=== PATIENT | male | born 1985 | race African-American/Black ===

== ENCOUNTER 2016-05-15 17:25 | Emergency (ER) | payer OTHER ==
[~2016-05-15] VITALS: Ht 185.4 cm; Wt 91.6 kg
[~2016-05-15 17:25] MED LIST: AZIT250T6 PO; BENZ100C PO; IBUP-1060 PO; LIDO20SO PO; PROAIR RESPICL90 MCG IH
[2016-05-15 17:49] VITALS: BP 122/75
[2016-05-15] MEDS ORDERED: ONDANSETRON ODT 4 MG TAB.RAPDIS PO ONE (18:30)
[2016-05-15] MEDS ORDERED: LIDO:MAALOX:DONNATAL 1:1:1 15 ML SINGLE DOSE SWSW ONE (18:30)
[2016-05-15] MEDS ORDERED: RANI300T3 PO (18:33)
[2016-05-15] MEDS ORDERED: ONDA4TAB7 PO (18:33)
--- NOTE | 2016-05-15 18:33 | PHYS DOC ---
Past Medical History Past Medical History: No Pertinent History Past Surgical History: Other Additional Past Surgical Histo: foot, cyst removal rt testicle, L ACHILLES Alcohol Use: None Drug Use: None Adult General Chief Complaint Chief Complaint: ABDOMINAL PAIN HPI HPI 31-year-old male presents with 12 hour history of nausea. He states he does have some epigastric burning as well. He denies any shortness of breath. He denies fever chills sweats. He denies any melena or hematemesis. He states he's never had this Problem before. He Does Not Drink A Lot Of Alcohol. [] Review of Systems Review of Systems Constitutional: Denies fever or chills [] Eyes: Denies change in visual acuity, redness, or eye pain [] HENT: Denies nasal congestion or sore throat [] Respiratory: Denies cough or shortness of breath [] Cardiovascular: No additional information not addressed in HPI [] GI: Epigastric pain [] : Denies dysuria or hematuria [] Musculoskeletal: Denies back pain or joint pain [] Integument: Denies rash or skin lesions [] Neurologic: Denies headache, focal weakness or sensory changes [] Endocrine: Denies polyuria or polydipsia [] Current Medications Current Medications Current Medications Medications (Trade) Dose Ordered Sig/Ortega Start Time Stop Time Status Last Admin Dose Admin Multi-Ingredient Mouthwash/Gargle (Gi Cocktail Single Dose) 30 ml 1X ONCE 05/15/16 18:30 05/15/16 18:31 Ondansetron HCl (Zofran Odt) 4 mg 1X ONCE 05/15/16 18:30 05/15/16 18:31 Allergies Allergies Allergies Coded Allergies Type Severity Reaction Last Updated Verified No Known Drug Allergies 03/05/16 No Physical Exam Physical Exam Constitutional: Well developed, well nourished, no acute distress, non-toxic appearance. [] HENT: Normocephalic, atraumatic, bilateral external ears normal, oropharynx moist, no oral exudates, nose normal. [] Eyes: PERRLA, EOMI, conjunctiva normal, no discharge. [] Neck: Normal range of motion, no tenderness, supple, no stridor. [] Cardiovascular:Heart rate regular rhythm, no murmur [] Lungs & Thorax: Bilateral breath sounds clear to auscultation [] Abdomen: Mild epigastric pain negative Noel's [] Skin: Warm, dry, no erythema, no rash. [] Back: No tenderness, no CVA tenderness. [] Extremities: No tenderness, no cyanosis, no clubbing, ROM intact, no edema. [] Neurologic: Alert and oriented X 3, normal motor function, normal sensory function, no focal deficits noted. [] Psychologic: Affect normal, judgement normal, mood normal. [] Current Patient Data Vital Signs Vital Signs Date Time Temp Pulse Resp B/P Pulse Ox O2 Delivery O2 Flow Rate FiO2 05/15/16 17:49 98.3 67 15 122/75 100 Room Air 98.3 EKG EKG [] Radiology/Procedures Radiology/Procedures [] Course & Med Decision Making Course & Med Decision Making Pertinent Labs and Imaging studies reviewed. (See chart for details) [] Dragon Disclaimer Dragon Disclaimer This electronic medical record was generated, in whole or in part, using a voice recognition dictation system. Departure Departure Impression: Primary Impression: Nausea Additional Impression: Epigastric pain Disposition: HOME, SELF-CARE Condition: STABLE Referrals: NO PCP (PCP) Patient Instructions: Gastritis, Adult, Nausea and Vomiting Additional Instructions: Thank you for allowing us to participate in your care today. Followup with your primary care physician in 3 days if your symptoms do not improve. Return to the emergency department you have any new or concerning findings. This should be evaluated by the primary care physician and any necessary consulting services for continued management within a few days after discharge. Return to emergency room if you have any new or concerning symptoms including but not limited to fever, chills, nausea, vomiting, intractable pain, any new rashes, chest pain, shortness of air, uncontrolled bleeding, difficulty breathing, and/or vision loss. You may have been prescribed medication that can change in your level of thinking and ability to operate machinery. These medications include hydrocodone and Ativan. Also, Benadryl has been known to do this as well. Be sure to check with your pharmacist and ask if the medications you've prescribed can affect your level of consciousness. I recommend not operating heavy machinery or driving while on medication such as these. Scripts Ondansetron Hcl (Zofran)4 Mg Tablet1 Tab PO Q8HRS PRN NAUSEA #20 TAB Prov:KYMBERLY BOWEN DO 1/18/17 Ranitidine Hcl (Zantac)300 Mg Tablet1 Tab PO QHS reflux #90 TAB Ref 3 Prov:KYMBERLY BOWEN DO 05/15/16 Problem Qualifiers KYMBERLY BOWEN DO May 15, 2016 18:33
== END 2016-05-15 18:48 | disposition home or self-care (01) ==
LOC: ER 17:25
DX: R11.0 Nausea (principal); R10.13 Epigastric pain
CPT/HCPCS: 99283; Q0162

== ENCOUNTER 2016-07-14 02:24 | Emergency (ER) | payer OTHER ==
[~2016-07-14] VITALS: Ht 185.4 cm; Wt 86.2 kg
[~2016-07-14 02:24] MED LIST changes: +ONDA4TAB7 PO; +RANI300T3 PO
[2016-07-14 02:36] VITALS: BP 132/72
[2016-07-14] MEDS ORDERED: CEPH-264 PO (03:03)
[2016-07-14] MEDS ORDERED: NAPR250T2 PO (03:03)
[2016-07-14] MEDS ORDERED: NAPROXEN 250 MG TABLET PO ONE (03:15)
[2016-07-14] MEDS ORDERED: CEPHALEXIN 250 MG CAPSULE PO ONE (03:15)
--- NOTE | 2016-07-14 03:40 | ED.ADGEN ---
Past Medical History Past Medical History: No Pertinent History Past Surgical History: Other Additional Past Surgical Histo: foot, cyst removal rt testicle, L ACHILLES Alcohol Use: None Drug Use: None Adult General Chief Complaint Chief Complaint: INSECT BITE HPI HPI Patient is a 31 year old man, with no significant past medical history, who presents to the emergency department with a complaint of redness and swelling that has been spreading on his left forearm over the past 3 days. Patient states he is concerned this could be from a "spider bite", although he has not actually seen any insects biting his arm. Patient states he woke on Friday morning, and noticed a small area of redness that was "itchy", he states there was a small amount drainage that occurred from this area, and it has spread now up part of his forearm, he denies any difficulty with motion, any fevers, any chills, any injuries, any weakness, numbness, tingling, GI, or respiratory complaints. Review of Systems Review of Systems Constitutional: Denies fever or chills. [] Eyes: Denies change in visual acuity. [] HENT: Denies nasal congestion or sore throat. [] Respiratory: Denies cough or shortness of breath. [] Cardiovascular: Denies chest pain or edema. [] GI: Denies abdominal pain, nausea, vomiting, bloody stools or diarrhea. [] : Denies dysuria. [] Musculoskeletal: Denies back pain or joint pain. Pain in the left upper extremity, with redness and swelling along the forearm. Integument: Denies rash. [] Neurologic: Denies headache, focal weakness or sensory changes. [] Endocrine: Denies polyuria or polydipsia. [] Lymphatic: Denies swollen glands. [] Psychiatric: Denies depression or anxiety. [] Current Medications Current Medications Current Medications Medications (Trade) Dose Ordered Sig/Ortega Start Time Stop Time Status Last Admin Dose Admin Cephalexin HCl (Keflex) 500 mg 1X ONCE 07/14/16 03:15 07/14/16 03:16 DC 07/14/16 03:11 500 MG Naproxen (Naprosyn) 250 mg 1X ONCE 07/14/16 03:15 07/14/16 03:16 DC 07/14/16 03:10 250 MG Allergies Allergies Allergies Coded Allergies Type Severity Reaction Last Updated Verified No Known Drug Allergies 03/05/16 No Physical Exam Physical Exam Constitutional: Well developed, well nourished, no acute distress, non-toxic appearance. [] HENT: Normocephalic, atraumatic, bilateral external ears normal, oropharynx moist, no oral exudates, nose normal. [] Eyes: PERRLA, EOMI, conjunctiva normal, no discharge. [] Neck: Normal range of motion, no tenderness, supple, no stridor. [] Cardiovascular:Heart rate regular rhythm, no murmur , S1, S2, rubs or gallops. [ ] Lungs & Thorax: Bilateral breath sounds clear to auscultation, no wheezing, rhonchi, rales. No chest or crepitus or tenderness. [] Abdomen: Bowel sounds normal, soft, no tenderness, no masses, no pulsatile masses. [] Skin: Warm, dry, no erythema, no rash. [] Back: No tenderness, no CVA tenderness. [] Extremities: Patient with mild tenderness to palpation located along the posterior aspect of the forearm, patient noted to have small excoriation in this area, with surrounding erythema, no fluctuance or drainage identified. Examination is consistent with mild cellulitis. No cyanosis, no clubbing, ROM intact, no edema. [] Neurologic: Alert and oriented X 3, normal motor function, normal sensory function, no focal deficits noted. [] Psychologic: Affect normal, judgement normal, mood normal. [] Current Patient Data Vital Signs Vital Signs Date Time Temp Pulse Resp B/P Pulse Ox O2 Delivery O2 Flow Rate FiO2 07/14/16 02:36 98.2 65 16 98 Room Air 98.2 EKG EKG Not indicated. [] Radiology/Procedures Radiology/Procedures Not indicated. [] Course & Med Decision Making Course & Med Decision Making Pertinent Labs and Imaging studies reviewed. (See chart for details) Patient's vaccinations: Tetanus up-to-date. Is not consistent with particular insect bite, although it is consistent with cellulitis, there is no drainable abscess identified. Based on patient's report of the spreading, without any other past medical history or exposures, we'll treat with Keflex, naproxen, topical antibiotic ointment, patient follow up with his primary care provider, and to return to the ED for concerning symptoms as discussed. Patient agreeable with plan as stated, given first dose of Keflex and naproxen in the ED without issue. Discharged home in stable condition with plan as above. Dragon Disclaimer Dragon Disclaimer This electronic medical record was generated, in whole or in part, using a voice recognition dictation system. Departure Impression: Primary Impression: Cellulitis Disposition: HOME, SELF-CARE Condition: STABLE Scripts Cephalexin (Keflex)500 Mg [id number] Mg PO QID #20 CAP Prov:MARKO BUSBY DO 07/14/16 Naproxen 250 Mg [id number] Mg PO BID PRN PAIN #10 Prov:MARKO BUSBY DO 07/14/16 MARKO BUSBY DO Jul 14, 2016 03:40
== END 2016-07-14 03:13 | disposition home or self-care (01) ==
LOC: ER 02:24
DX: L03.114 Cellulitis of left upper limb (principal)
CPT/HCPCS: 99283

== ENCOUNTER 2016-07-17 21:17 | Emergency (ER) | payer OTHER ==
[~2016-07-17 21:17] MED LIST changes: +CEPH-264 PO; +NAPR250T2 PO
[2016-07-17 21:35] VITALS: BP 122/70
[2016-07-17] MEDS ORDERED: SULF1TAB24 PO (22:57)
--- NOTE | 2016-07-17 22:57 | PHYS DOC ---
Past Medical History Past Medical History: No Pertinent History Past Surgical History: Other Additional Past Surgical Histo: foot, cyst removal rt testicle, L ACHILLES Additional Information: Nonsmoker Alcohol Use: Occasionally Drug Use: None Adult General Chief Complaint Chief Complaint: SKIN PROBLEM HPI HPI Patient is a 31 year old male who presents with right calf "spider bite" that he noticed yesterday. The patient was seen here on 07/14/16 for similar wound on the left wrist. He was diagnosed with mild cellulitis and prescribed Keflex and naproxen. He reports that the wrist wound is almost completely healed now. His boss instructed him to come to the emergency department to have the calf wound evaluated today. He denies any fevers or drainage from the wound. He has had some abdominal discomfort since starting the antibiotics but denies nausea, vomiting, or diarrhea. Review of Systems Review of Systems Constitutional: Denies fever or chills. [] Musculoskeletal: Denies back pain or joint pain. [] Integument: Denies rash or skin lesions. Reports right calf abscess. Neurologic: Denies focal weakness or sensory changes. [] Allergies Allergies Allergies Coded Allergies Type Severity Reaction Last Updated Verified No Known Drug Allergies 03/05/16 No Physical Exam Physical Exam Constitutional: Well developed, well nourished, no acute distress, non-toxic appearance. [] HENT: Normocephalic, atraumatic, oropharynx moist. [] Eyes: PERRLA, EOMI, conjunctiva normal, no discharge. [] Skin: Warm, dry, no erythema, no rash. There is a 2 cm indurated abscess on the right posterior calf without surrounding cellulitis. Extremities: Right posterior calf tenderness over the abscess, ROM intact, no edema. Distal pulses equal bilaterally. [] Neurologic: Alert and oriented X 3, normal motor function, normal sensory function, no focal deficits noted. [] Psychologic: Affect normal, judgement normal, mood normal. [] Current Patient Data Vital Signs Vital Signs Date Time Temp Pulse Resp B/P Pulse Ox O2 Delivery O2 Flow Rate FiO2 07/17/16 21:35 98.3 65 18 100 Room Air 98.3 EKG EKG [] Radiology/Procedures Radiology/Procedures [] Course & Med Decision Making Course & Med Decision Making Pertinent Labs and Imaging studies reviewed. (See chart for details) [] Dragon Disclaimer Dragon Disclaimer This electronic medical record was generated, in whole or in part, using a voice recognition dictation system. Departure Departure Impression: Primary Impression: Abscess Disposition: 01 HOME, SELF-CARE Condition: STABLE Referrals: NO PCP (PCP) Patient Instructions: Abscess, [id number] Additional Instructions: You were seen for an infection of the skin called an abscess. Please continue to take the antibiotic previously prescribed. Please begin taking the newly prescribed antibiotic as well. Please complete all of the antibiotics. Please apply warm compresses to the wound to help the wound to drain the infection. Please follow-up with a primary care provider within the next 2-3 days to have your wound reevaluated. Return to the emergency department if you have worsening of your wound, fevers, or other new or concerning symptoms. Scripts Sulfamethoxazole/Trimethoprim (Bactrim Ds Tablet)1 Each Tablet1 Tab PO BID #14 TAB Prov:MARKO KAPOOR 07/17/16 MARKO KAPOOR Jul 17, 2016 22:57
== END 2016-07-17 23:00 | disposition home or self-care (01) ==
LOC: ER 21:17
DX: L02.414 Cutaneous abscess of left upper limb (principal)
CPT/HCPCS: 99283

== ENCOUNTER 2019-01-29 19:39 | Emergency (ER) | payer SELFPAY ==
[~2019-01-29] VITALS: Ht 185.4 cm; Wt 88.5 kg
[~2019-01-29 19:39] MED LIST changes: -NAPR250T2 PO; +NAPR250T6 PO; +SULF1TAB24 PO
[2019-01-29 19:58] VITALS: BP 157/84
--- NOTE | 2019-01-29 20:04 | PHYS DOC ---
Past Medical History Past Medical History: No Pertinent History (VALDEMAR FLORES APRN) Past Surgical History: Other Additional Past Surgical Histo: foot, cyst removal rt testicle, L ACHILLES (VALDEMAR FLORES APRN) Alcohol Use: Occasionally Drug Use: None (VALDEMAR FLORES APRN) Adult General Chief Complaint Chief Complaint: BACK PAIN - NO INJURY HPI HPI Patient is a 33 year old male with history of chronic neck and back pain who presents to the ED today complaining of chronic 8 out of 10 neck and back pain. Patient denies any known injury. 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 He states currently his pain is not allowing him to perform his duties. He states he used to follow-up with [facility] back surgeon who did a couple procedures including steroid injections, pain medications to his back and neck, he states all this procedures did not help. Patient denies any pain radiating to bilateral upper and lower extremities. Denies any loss of bowel bladder function. Denies any numbness or tingling to bilateral upper and lower extremities. (VALDEMAR FLORES APRN) Review of Systems Review of Systems Constitutional: Denies fever or chills [] Musculoskeletal: Reports back and neck pain-chronic Integument: Denies rash or skin lesions [] Neurologic: Denies headache, focal weakness or sensory changes [] All other systems were reviewed and found to be within normal limits, except as documented in this note. (VALDEMAR FLORES APRN) Allergies Allergies Allergies Coded Allergies Type Severity Reaction Last Updated Verified No Known Drug Allergies 03/05/16 No (VIOLETTE QUIROZ MD) Physical Exam Physical Exam Constitutional: Well developed, well nourished, no acute distress, non-toxic appearance. [] Neck: Normal range of motion, no tenderness, supple, no stridor. [] Skin: Warm, dry, no erythema, no rash. [] Back: No tenderness, no CVA tenderness. [] Extremities: No tenderness, no cyanosis, no clubbing, ROM intact, no edema. [] Neurologic: Alert and oriented X 3, normal motor function, normal sensory function, no focal deficits noted. [] Psychologic: Affect normal, judgement normal, mood normal. [] (VALDEMAR FLORES APRN) Current Patient Data Vital Signs Vital Signs Date Time Temp Pulse Resp B/P (MAP) Pulse Ox O2 Delivery O2 Flow Rate FiO2 01/29/19 19:58 97.8 62 12 157/84 (108) 99 Room Air 97.8 (VIOLETTE QUIROZ MD) EKG EKG [] (VALDEMAR FLORES APRN) Radiology/Procedures Radiology/Procedures [] (VALDEMAR FLORES APRN) Course & Med Decision Making Course & Med Decision Making Pertinent Labs and Imaging studies reviewed. (See chart for details) This is a 33-year-old male patient who presents to the ED today complaining of neck and back pain that is chronic, no known injury. Patient was given MSE exam per hospital protocol. (VALDEMAR FLORES APRN) Course & Med Decision Making Staff Physician Addendum: I was working in the ER during the course of this patient's visit. I was available for consultation as needed, but I was not directly involved in the care of this patient. (VIOLETTE QUIROZ MD) Dragon Disclaimer Dragon Disclaimer This electronic medical record was generated, in whole or in part, using a voice recognition dictation system. (VALDEMAR FLORES APRN) Departure Departure Impression: Primary Impression: Chronic neck pain Additional Impression: Chronic back pain Disposition: 07 AGAINST MEDICAL ADVICE Condition: STABLE Referrals: NO PCP (PCP) Problem Qualifiers Additional Impression: Chronic back pain Back pain location: back pain in other location Qualified Codes: M54.9 - Dorsalgia, unspecified; G89.29 - Other chronic pain VALDEMAR FLORES APRN Jan 29, 2019 20:04 VIOLETTE QUIROZ MD Jan 29, 2019 20:57
== END 2019-01-29 20:35 | disposition home or self-care (01) ==
LOC: ER 19:39
DX: G89.29 Other chronic pain (principal); M54.2 Cervicalgia; M54.5 Low back pain
CPT/HCPCS: 99281

== ENCOUNTER 2021-09-24 11:44 | Emergency (ER) | payer SELFPAY ==
[~2021-09-24] VITALS: Ht 185.4 cm; Wt 86.3 kg
[~2021-09-24 11:44] MED LIST changes: +NAPR-699 PO; -NAPR250T6 PO
[2021-09-24 11:45] VITALS: BP 170/100
[2021-09-24] MEDS ORDERED: AMOX875T PO ×2 (13:15→13:21)
--- NOTE | 2021-09-24 13:15 | PHYS DOC ---
Past Medical History Past Medical History: No Pertinent History Past Surgical History: Other Additional Past Surgical Histo: Craniotomy, cyst remove rt testicle, L ACHILLES, LOWER BACK, UPPER NECK Smoking Status: Never Smoker Alcohol Use: Occasionally Drug Use: None General Adult EDM: Chief Complaint: FOREIGNBODY EAR HPI: HPI: Patient is a 36-year-old male who presents to the emergency department complaining of left ear pain for the past week. Patient reports he was cleaning his ear out about 2 to 3 weeks ago with a cotton swab and believes the cotton may have broken off inside his ear. He does not recall sand the cotton come out. Patient denies fever or chills, denies hearing loss, denies throat pain, chest or nasal congestion, denies headaches, dizziness, syncopal or near syncopal episodes, denies visual disturbances. Patient denies other physical complaints or physical concerns. Patient does report a 4 out of 10 pain. Has not taken pain medications or tried nonpharmacological pain relief methods. Review of Systems: Review of Systems: 14 body systems of review of systems have been reviewed. See HPI for pertinent positives and negative responses, otherwise all other systems are negative, nonpertinent or noncontributory. Constitutional: Negative except as outlined in HPI above. Skin: Negative except as outlined in HPI above. Eyes: Negative except as outlined in HPI above. HENT: Negative except as outlined in HPI above. Respiratory: Negative except as outlined in HPI above. Cardiovascular: Negative except as outlined in HPI above. GI: Negative except as outlined in HPI above. : Negative except as outlined in HPI above. Musculoskeletal: Negative except as outlined in HPI above. Integument: Negative except as outlined in HPI above. Neurologic: Negative except as outlined in HPI above. Endocrine: Negative except as outlined in HPI above. Lymphatic: Negative except as outlined in HPI above. Psychiatric: Negative except as outlined in HPI above. Heart Score: C/O Chest Pain: No Risk Factors: Risk Factors: DM, Current or recent (<one month) smoker, HTN, HLP, family history of CAD, obesity. Risk Scores: Score 0 - 3: 2.5% MACE over next 6 weeks - Discharge Home Score 4 - 6: 20.3% MACE over next 6 weeks - Admit for Clinical Observation Score 7 - 10: 72.7% MACE over next 6 weeks - Early Invasive Strategies Allergies: Allergies: Allergies Coded Allergies Type Severity Reaction Last Updated Verified No Known Drug Allergies 03/05/16 No Physical Exam: PE: Constitutional: Well developed, well nourished, no acute distress, non-toxic appearance. 36-year-old male in no apparent distress. HENT: Normocephalic, atraumatic. Oropharynx moist, pink, no deep tissue infectious process appreciated, normal phonation, no drooling, no trismus appreciated, there is no lymphadenopathy of the head or neck appreciated, right TM intact and within normal limits, left TM is erythematous, bulging, bony landmarks are not appreciated visually, there is no drainage or perforation of the tympanic membrane. Eyes: Conjunctiva normal, no discharge. Neck: Normal range of motion, no stridor. Cardiovascular: No cyanosis appreciated, distal cap refill less than 2 seconds. Lungs & Thorax: Patient is in no respiratory distress, no audible adventitious lung sounds appreciated. Abdomen: Nontender, no abnormalities noted. Skin: Warm, dry, no erythema, no rash. Back: No tenderness, no deformities. Extremities: No tenderness, no cyanosis, no clubbing, ROM intact, no edema. Neurologic: Alert and oriented X 3, normal motor function, normal sensory function, no focal deficits noted. Psychologic: Affect normal, judgement normal, mood normal. Current Patient Data: Vital Signs: Vital Signs Date Time Temp Pulse Resp B/P (MAP) Pulse Ox O2 Delivery O2 Flow Rate FiO2 09/24/21 11:45 98.0 80 18 170/100 (123) 98 Room Air 98.0 EKG: EKG: [] Radiology/Procedures: Radiology/Procedures: [] Course & Med Decision Making: Course & Med Decision Making Pertinent Labs and Imaging studies reviewed. (See chart for details) 36-year-old male, vital signs reviewed, presents to the emergency department con cerning left ear pain. Physical presentation examination suspicious for acute otitis media. Will start on antibiotic regimen. Discussed with patient antibiotics, side effects, taking [id number] Tylenol or Motrin for ongoing aches and pains, strict follow-up primary care soon, return to ER precautions and concerns were reviewed, patient gave verbal understanding of and is amenable to ED discharge planning. Discussed with the patient all findings and diagnostic testing as well as the need to follow-up with their primary care provider for further evaluation and treatment or return to the ED if any new or worsening symptoms. Strict return precautions were also discussed at length, the patient voiced understanding and agreement with the discharge planning. The patient was nontoxic in appearance, in no apparent distress, and hemodynamically stable at the time of disposition. Dragon Disclaimer: Dragon Disclaimer: This electronic medical record was generated, in whole or in part, using a voice recognition dictation system. Departure Departure Impression: Primary Impression: Acute otitis media Qualified Codes: H66.90 - Otitis media, unspecified, unspecified ear Disposition: HOME / SELF CARE / HOMELESS Condition: GOOD Referrals: NO PCP (PCP) Patient Instructions: Otitis Media, Adult Additional Instructions: You were seen today in the emergency department for left ear pain. Your examination is suspicious for an ear infection. As we discussed I am starting you on an antibiotic, please take as directed until complete. This medication will be amoxicillin, you will take this twice a day for the next 7 days. Please take as directed until complete. You may take [id number] Tylenol and or ibuprofen for returning aches and pains. Please follow-up with your primary care physician for ongoing symptoms. Return to the emergency department for worsening symptoms or other concerns. Thank you for visiting our Emergency Department. It was a pleasure taking care of you today in the emergency department and we appreciate you trusting us with your care. If any additional problems come up don't hesitate to return to visit us. Please follow up with your primary care provider so they can plan additional care if needed and know about the problem that you had. If symptoms worsen come back to the Emergency Department. Any concerning symptoms that start such as chest pain, shortness of air, weakness or numbness on one side of the body, running high fevers or any other concerning symptoms return to the ER. Scripts Amoxicillin (AMOXICILLIN) 875 Mg Tablet 1 TAB PO BID for AOM, #14 TAB 0 Refills Prov: MEDINA ARTIS APRN 09/24/21 MEDINA ARTIS APRN September 24, 2021 13:15
== END 2021-09-24 13:15 | disposition home or self-care (01) ==
LOC: ER 11:44
DX: H66.92 Otitis media, unspecified, left ear (principal)
CPT/HCPCS: 99283